=== PATIENT | female | born 1985 | race Caucasian/White ===

== ENCOUNTER → 2016-11-21 16:24 | Outpatient (CLI) | payer MEDICAID | END | disposition home or self-care (01) | LOC: D.MAMMO 10:45 | DX: N60.19 Diffuse cystic mastopathy of unspecified breast (principal) ==

== ENCOUNTER → 2017-06-21 16:32 | Outpatient (CLI) | payer MEDICAID | END | disposition home or self-care (01) | LOC: D.MAMMO 09:30 | DX: R92.8 Other abnormal and inconclusive findings on diagnostic imaging of breast (principal) ==

== ENCOUNTER 2019-07-07 11:19 | Inpatient (IN) | payer MEDICAID ==
[~2019-07-07] VITALS: Ht 171.4 cm; Wt 78.5 kg
[2019-07-07 12:33] LABS: BASOPHILS 0.1 % (0-2); EOSINOPHILS 0.1 % (0-7); HEMATOCRIT 43.1 % (36.0-48.0); HEMOGLOBIN 15.6 g/dL (12-16); IMMATURE GRANULOCYTES 0.3 % (0-5); LYMPHOCYTES 13.4 % (15-50); MCH 31.2 pg (26.0-34.0); MCHC 36.2 g/dL (31.0-37.0); MCV 86.2 fL (80.0-100.0); MONOCYTES 8.2 % (2-11); NEUTROPHILS 77.9 % (40-80); PLATELET COUNT 226 10x3/uL (130-400); RDW 13.3 % (11.5-14.5); WBC 10.9 10x3/uL (4.8-10.8)
[2019-07-07 12:58] LABS: ALBUMIN 4.1 g/dL (3.4-5.0); ANION GAP 14.7 mmol/L (8-16); BILIRUBIN - TOTAL 1.06 mg/dL (0.2-1.3); CALCIUM 8.7 mg/dL (8.5-10.1); POTASSIUM - SERUM 3.7 mmol/L (3.5-5.1); PROTEIN - SERUM 7.9 g/dL (6.4-8.2)
[2019-07-07 13:03] LABS: TROPONIN-I 0.022 ng/mL (0.000-0.060)
[2019-07-07 13:41] VITALS: BP 118/74
--- NOTE | 2019-07-07 14:29 | NUR ---
FLU SWAB TO LAB
[2019-07-07 15:02] LABS: APTT 21.9 SECONDS (22.8-39.4); PROTIME 12.7 SECONDS (11.6-15.0)
--- NOTE | 2019-07-07 15:12 | NUR ---
URINE TO LAB
[2019-07-07 15:31] LABS: APPEARANCE HAZY (CLEAR); BACTERIA MANY /hpf (NONE SEEN); BILIRUBIN NEGATIVE (NEGATIVE); COLOR YELLOW (YELLOW); EPITHELIAL CELLS 0-5 /hpf (0-5); GLUCOSE NEGATIVE (NEGATIVE); KETONE NEGATIVE (NEGATIVE); MUCUS >1+ /lpf (NONE SEEN); NITRITE POSITIVE (NEGATIVE); PROTEIN TRACE mg/dL (NEGATIVE); UROBILINOGEN NORMAL (NORMAL)
[2019-07-07 15:32] LABS: AMORPHOUS SEDIMENT <1+ /lpf (NONE SEEN); HCG URINE NEGATIVE (NEGATIVE)
[2019-07-07 16:43] VITALS: BP 150/87
--- NOTE | 2019-07-07 16:47 | NUR ---
VITALS TAKEN AT 1643 ARE FOR ANOTHER PT
--- NOTE | 2019-07-07 17:36 | MORECARE ---
CASE MANAGEMENT DISCHARGE SUMMARY PATIENT: SHERRY CRUZ UNIT: [id number] ADM DATE: 07/07/19 AGE: 34 : 81 SEX: F ROOM/BED: D.1205 AUTHOR: HORACIO CACERES PHYSICIAN: REFERRING PHYSICIAN: KAVYA EMERSON MD DATE OF SERVICE: 07/07/19 Discharge Plan Patient Name: SHERRY CRUZ Facility: [facility]:[place] : 1985 Planned Disposition: Home Anticipated Discharge Date: 07/09/19 Discharge Date: Expected LOS: 2 Initial Reviewer: [email or web address] Initial Review Date: 07/07/2019 Generated: 07/07/19 6:36 pm DCPIA - Discharge Planning Initial Assessment Updated by [email or web address]: Nesha Shaikh on 07/07/19 5:34 pm * Is the patient Alert and Oriented? Yes * How many steps to enter\exit or inside your home? None * PCP Dr. Balderrama * Pharmacy [facility] on [address] * Preadmission Environment Home with Family * ADLs Independent * Equipment None * List name and contact numbers for known caregivers / representatives who currently or will assist patient after discharge: Adela Rivas [facility] - [phone] * Verbal permission to speak to the caregivers and representatives has been obtained from the patient. Yes * Community resources currently utilized None * Additional services required to return to the preadmission environment? No * Can the patient safely return to the preadmission environment? Yes * Has this patient been hospitalized within the prior 30 days at any hospital? No Patient Name: SHERRY CRUZ Page 51437 at 1736 All edits/amendments must be made on the electronic document DICTATION DATE: 07/07/191735 PRINTED CIRCUIT BOARD DESIGNER: CHETNA 07/07/191735 RPT#: [id number] DC DATE: STATUS: ADM IN [facility] [address] [place] [address] END OF REPORT
[2019-07-07] MEDS ORDERED: ADVIL200 MG PO (18:25)
[2019-07-07 18:32] VITALS: BP 132/75; BMI 26.7
[2019-07-07 19:32] VITALS: BP 107/68
[2019-07-07 23:41] VITALS: BP 98/51
[2019-07-08 04:54] VITALS: BP 103/52
[2019-07-08 06:41] LABS: BASOPHILS 0.1 % (0-2); EOSINOPHILS 1.2 % (0-7); HEMATOCRIT 34.5 % (36.0-48.0); IMMATURE GRANULOCYTES 0.3 % (0-5); LYMPHOCYTES 31.1 % (15-50); MCH 30.4 pg (26.0-34.0); MCHC 34.5 g/dL (31.0-37.0); MEAN PLATELET VOLUME 10.1 fL (7.4-10.4); MONOCYTES 9.2 % (2-11); NEUTROPHILS 58.1 % (40-80); RDW 13.5 % (11.5-14.5)
[2019-07-08 06:43] LABS: HEMOGLOBIN 11.9 g/dL (12-16); PLATELET COUNT 161 10x3/uL (130-400); RBC 3.92 10x6/uL (4.00-5.40); WBC 6.8 10x3/uL (4.8-10.8)
[2019-07-08 07:11] LABS: ALKALINE PHOSPHATASE 49 U/L (46-116); BILIRUBIN - TOTAL 0.87 mg/dL (0.2-1.3); CALC OSMOLALITY 282 mosm/kg (275-300); CALCIUM 7.7 mg/dL (8.5-10.1); CARBON DIOXIDE 26.6 mmol/L (21.0-32.0); CHLORIDE - SERUM 109 mmol/L (98-107); CREATININE - SERUM 0.8 mg/dL (0.6-1.3); GLUCOSE 89 mg/dL (74-106); POTASSIUM - SERUM 3.7 mmol/L (3.5-5.1); SODIUM 142 mmol/L (136-145); UREA NITROGEN 15 mg/dL (7-18); eGFR NON AFRICAN AMERICAN 86 mL/min (90-120)
[2019-07-08 07:13] LABS: ALBUMIN 2.8 g/dL (3.4-5.0); ALT (SGPT) 690 U/L (10-68); PROTEIN - SERUM 5.7 g/dL (6.4-8.2)
--- NOTE | 2019-07-08 07:37 | NUR ---
ROUNDING DONE WITH PATIENT HAVING NO NEEDS VOICED AT THIS TIME. ON ROOM AIR. LEFT AC PIV SEEN WITH NS INFUSING AT 125 CC/HR. WILL CPOC.
[2019-07-08 07:48] VITALS: BP 105/62
--- NOTE | 2019-07-08 09:24 | NUR ---
RESTING AT THIS TIME WITH EYES CLOSED, HOB AT 45 DEGREES.
--- NOTE | 2019-07-08 09:55 | NUR ---
PATIENT TO COMPLAIN OF FLANK PAIN, MS 4 MG GIVEN ORDERED. PATIENT STATES THAT SHE FEELS SWOLLEN AND WOULD LIKE THE FLUIDS TURNED DOWN SOME. DECREASED TO 50 CC/HR AND PATIENT IS INSTRUCITED TO DRINK.
[2019-07-08 10:10] LABS: HEPATITIS C ANTIBODY <0.1 S/CO RAT (0.0-0.9)
--- NOTE | 2019-07-08 10:46 | NUR ---
PLACED ON HEART MONITOR ORDERED. CLEAN [place] HAT X 2 PLACED IN [facility] AND EXPLAINED USE TO PATIENT. SIGNS PLACED ON DOOR FOR UA, STOOL, AND STRICT I AND O.
[2019-07-08 10:51] LABS: % SATURATION 82 % (15-55); IRON 216 ug/dl (35-150); TOTAL IRON BIND CAPACITY 261 ug/dl (260-445)
[2019-07-08 10:54] LABS: UNSAT IRON BIND CAPACITY 45 ug/dl (150-375)
[2019-07-08 11:28] VITALS: BP 122/65
--- NOTE | 2019-07-08 11:56 | MORECARE ---
CASE MANAGEMENT DISCHARGE SUMMARY PATIENT: SHERRY CRUZ UNIT: [id number] ADM DATE: 07/07/19 AGE: 34 : 81 SEX: F ROOM/BED: D.1205 AUTHOR: NICKI,DOC PHYSICIAN: REFERRING PHYSICIAN: KAVYA EMERSON MD DATE OF SERVICE: 07/08/19 Discharge Plan Patient Name: SHERRY CRUZ Facility: [facility]:[place] : 1985 Planned Disposition: Home Anticipated Discharge Date: 07/09/19 Discharge Date: Expected LOS: 2 Initial Reviewer: [email or web address] Initial Review Date: 07/07/2019 Generated: 07/08/19 12:56 pm Comments DCP- Discharge Planning Updated by [email or web address]: Olivia Horan on 07/08/19 10:[address] DC PLAN: Return home independently. ANTICIPATED DC NEEDS: Denied known dc needs. CM met with patient to complete initial dc planning assessment. CM educated patient on the CM role and verbal consent given by patient to complete assessment. CM verified patient's address, phone number, and emergency contact phone numbers. Patient lives at home independently with her school age children. At discharge patient plans to return home and feels this is a safe discharge. CM discussed availability of home health, rehab services, and medical equipment. Patient denied known discharge needs at this time. Patient reports her sister, Adela will transport her home at time of discharge. CM will continue to follow and will assist as needed with dc plans/needs. Nesha Shaikh RN, [facility] DCPIA - Discharge Planning Initial Assessment Updated by [email or web address]: Nesha Shaikh on 07/07/19 5:34 pm * Is the patient Alert and Oriented? Yes * How many steps to enter\exit or inside your home? None * PCP Dr. Balderrama * Pharmacy [facility] on [address] * Preadmission Environment Home with Family * ADLs Independent * Equipment None * List name and contact numbers for known caregivers / representatives who currently or will assist patient after discharge: Adela - - [phone] * Verbal permission to speak to the caregivers and representatives has been obtained from the patient. Yes * Community resources currently utilized None * Additional services required to return to the preadmission environment? No * Can the patient safely return to the preadmission environment? Yes * Has this patient been hospitalized within the prior 30 days at any hospital? No Last DP export: 07/07/19 4:36 p Patient Name: SHERRY CRUZ Page 13386 at 1156 All edits/amendments must be made on the electronic document DICTATION DATE: 07/08/191155 THERMO PROCESSOR: CHETNA 07/08/19 1156 RPT#: [id number] DC DATE: STATUS: ADM IN [facility] [address] [place] [address] END OF REPORT
[2019-07-08 13:46] VITALS: Ht 171.4 cm; Wt 78.5 kg
--- NOTE | 2019-07-08 14:37 | NUR ---
URINE SENT TO LAB ORDERED.
[2019-07-08 15:50] VITALS: BP 117/70
--- NOTE | 2019-07-08 18:22 | NUR ---
PATIENT HAS NOT HAD A BM FOR THIS SHIFT, UNABLE TO COLLECT SPECIMEN.
[2019-07-08 20:21] VITALS: BP 116/68
[2019-07-09 00:27] VITALS: BP 117/63
[2019-07-09 04:17] VITALS: BP 118/76
[2019-07-09 06:23] LABS: BASOPHILS 0.4 % (0-2); EOSINOPHILS 1.9 % (0-7); HEMATOCRIT 31.6 % (36.0-48.0); IMMATURE GRANULOCYTES 0.2 % (0-5); LYMPHOCYTES 35.2 % (15-50); MCH 30.6 pg (26.0-34.0); MCHC 34.8 g/dL (31.0-37.0); MEAN PLATELET VOLUME 10.2 fL (7.4-10.4); MONOCYTES 6.9 % (2-11); NEUTROPHILS 55.4 % (40-80); PLATELET COUNT 152 10x3/uL (130-400); RBC 3.59 10x6/uL (4.00-5.40); RDW 13.3 % (11.5-14.5); WBC 5.7 10x3/uL (4.8-10.8)
--- NOTE | 2019-07-09 07:11 | NUR ---
ROUNDING DONE WITH PATIENT AROUSING EASILY. HOB AT 45 DEGREES. LEFT AC PIV WITH NS INFUSING AT 50 CC/HR. ON ROOM AIR. ON HEART MONITOR. STILL NEEDING STOOL SAMPLE. ON STRICT I AND O. ON EP, NO LAB VALUES BACK AT THIS TIME.
[2019-07-09 07:15] LABS: ALBUMIN 2.6 g/dL (3.4-5.0); ALKALINE PHOSPHATASE 45 U/L (46-116); BILIRUBIN - TOTAL 0.59 mg/dL (0.2-1.3); CALCIUM 8.2 mg/dL (8.5-10.1); CARBON DIOXIDE 26.9 mmol/L (21.0-32.0); CHLORIDE - SERUM 109 mmol/L (98-107); CREATININE - SERUM 0.6 mg/dL (0.6-1.3); GLUCOSE 85 mg/dL (74-106); MAGNESIUM - SERUM 1.7 mg/dL (1.8-2.4); POTASSIUM - SERUM 3.8 mmol/L (3.5-5.1); PROTEIN - SERUM 5.2 g/dL (6.4-8.2); SODIUM 143 mmol/L (136-145); THYROID STIMULATING HORMONE 4.54 uIU/mL (0.36-3.74); eGFR NON AFRICAN AMERICAN > 90 mL/min (90-120)
[2019-07-09 07:17] LABS: ALT (SGPT) 474 U/L (10-68); CALC OSMOLALITY 282 mosm/kg (275-300); UREA NITROGEN 11 mg/dL (7-18)
--- NOTE | 2019-07-09 07:20 | NUR ---
EP RESULTS ARE BACK WITH K+ 3.8, MAG 1.7. WILL COVER WITH SUPPLEMENTS.
[2019-07-09 08:35] VITALS: BP 124/74
--- NOTE | 2019-07-09 10:42 | NUR ---
RESTING WITH EYES CLOSED, RESP EVEN. APPEARS PAIN FREE.
[2019-07-09 11:26] VITALS: BP 128/68
--- NOTE | 2019-07-09 11:33 | NUR ---
NEW ORDERS FROM DR MURRELL TO SALINE LOCK IV.
[2019-07-09 15:16] VITALS: BP 120/74
--- NOTE | 2019-07-09 18:30 | NUR ---
UNABLE TO COLLECT STOOL SAMPLE FOR THIS SHIFT.
[2019-07-09 19:00] VITALS: BP 116/82
--- NOTE | 2019-07-09 19:00 | NUR ---
REPORT RECEIVED FROM OFF GOING NURSE. PT WAS AMBULATING IN ROOM AT TIME OF ROUNDING. NO SIGNS OF DISTRESS NOTED OR VOICED. INITIAL ASSESSMENT COMPLETED, SEE FLOWSHEET FOR DETAILS. WILL CONTINUE TO MONITOR.
[2019-07-10 04:00] VITALS: BP 122/101
[2019-07-10 06:46] LABS: BASOPHILS 0.2 % (0-2); EOSINOPHILS 2.3 % (0-7); HEMATOCRIT 31.9 % (36.0-48.0); HEMOGLOBIN 11.2 g/dL (12-16); IMMATURE GRANULOCYTES 0.2 % (0-5); LYMPHOCYTES 34.6 % (15-50); MCH 30.6 pg (26.0-34.0); MCHC 35.1 g/dL (31.0-37.0); MCV 87.2 fL (80.0-100.0); MEAN PLATELET VOLUME 10.3 fL (7.4-10.4); MONOCYTES 7.1 % (2-11); NEUTROPHILS 55.6 % (40-80); PLATELET COUNT 162 10x3/uL (130-400); RBC 3.66 10x6/uL (4.00-5.40)
[2019-07-10 06:50] LABS: ALBUMIN 2.7 g/dL (3.4-5.0); ALKALINE PHOSPHATASE 49 U/L (46-116); BILIRUBIN - TOTAL 0.48 mg/dL (0.2-1.3); CALC OSMOLALITY 279 mosm/kg (275-300); CALCIUM 8.4 mg/dL (8.5-10.1); CARBON DIOXIDE 28.9 mmol/L (21.0-32.0); CHLORIDE - SERUM 107 mmol/L (98-107); CREATININE - SERUM 0.6 mg/dL (0.6-1.3); GLUCOSE 94 mg/dL (74-106); MAGNESIUM - SERUM 1.6 mg/dL (1.8-2.4); POTASSIUM - SERUM 3.7 mmol/L (3.5-5.1); PROTEIN - SERUM 5.4 g/dL (6.4-8.2); SODIUM 141 mmol/L (136-145); UREA NITROGEN 10 mg/dL (7-18); eGFR NON AFRICAN AMERICAN > 90 mL/min (90-120)
[2019-07-10 06:58] LABS: ALT (SGPT) 328 U/L (10-68)
--- NOTE | 2019-07-10 07:10 | NUR ---
REPORT RECEIVED FROM ESCROW ASSISTANT AND PATIENT CARE ASSUMED. PATIENT LAYING IN BED WITH EYES CLOSED AND BREATHINHG EVENLY. PATIENT IS STABLE AND VSS. WILL CONTINUE WITH PLAN OF CARE. SR UP X 2 BED IN LOW POSITION AND CALL LIGHT IN REACH.
[2019-07-10 08:00] VITALS: BP 123/74
--- NOTE | 2019-07-10 08:40 | NUR ---
NUTRITION F/U PT REPORTS IMPROVING PO INTAKE. RECEIVING DULCOLAX FOR CONSTIPATION. WILL CONTINUE TO PROVIDE DIET AND MONITOR PT PROGRESS. RD FOLLOWING
--- NOTE | 2019-07-10 09:30 | NUR ---
CALLED TO PATIENT ROOM. PATIENT SISTER IN ROOM. ANSWERED QUESTIONS TO PATIENT AND PATIENT SISTER SATISFACTION. WILL CONTINUE TO MONITOR. SR UP X 2 BED IN LOW POSITION AND CALL LIGHT IN REACH.
--- NOTE | 2019-07-10 11:45 | NUR ---
DR MURRELL IN ROOM AND NEW ORDERS RECEIVED.
[2019-07-10 14:17] LABS: CKMB 3.6 U/L (0.0-3.6); CREATINE KINASE 2282 UL (21-215); TROPONIN-I < 0.017 ng/mL (0.000-0.060)
--- NOTE | 2019-07-10 16:38 | NUR ---
PATIENT SITTING UP IN BED WATCHING TV. PATIENT IS STABLE AND VSS. PATIENT DENIES ANY NEEDS OR PAIN. WILL CONTINUE TO MONITOR. SR UP X 2 BED IN LOW POSITION AND CALL LIGHT IN REACH.
--- NOTE | 2019-07-10 18:01 | NUR ---
IV INFILLTRATED. REMOVED IV WITH ENTIRE CATHETER INTACT. RESITED IV TO LT WRIST 22 G W/O DIFFICULTY AND PATIENT TOLERATED WELL. IV ROCEPHIN INFUSING. WILL CONTINUE TO MONITOR. SR UP X 2 BED IN LOW POSITION AND CALL LIGHT IN REACH.
[2019-07-10 19:00] VITALS: BP 117/70
--- NOTE | 2019-07-10 19:00 | NUR ---
REPORT RECEIVED FROM OFF GOING NURSE. PT IS SITTING UP IN BED WATCHING TV AT THIS TIME. INITIAL ASSESSMENT COMPLETED, SEE FLOWSHEET FOR DETAILS. PT DENIES NEEDS AT THIS TIME. WILL CONTINUE TO MONITOR.
[2019-07-10 19:37] LABS: CREATINE KINASE 2556 UL (21-215); TROPONIN-I < 0.017 ng/mL (0.000-0.060)
[2019-07-11 00:56] LABS: CKMB 3.8 U/L (0.0-3.6)
[2019-07-11 01:00] LABS: CREATINE KINASE 2129 UL (21-215); TROPONIN-I < 0.017 ng/mL (0.000-0.060)
[2019-07-11 04:00] VITALS: BP 120/78
[2019-07-11 06:26] LABS: ALBUMIN 2.9 g/dL (3.4-5.0); ALKALINE PHOSPHATASE 53 U/L (46-116); ALT (SGPT) 263 U/L (10-68); BILIRUBIN - TOTAL 0.53 mg/dL (0.2-1.3); CALC OSMOLALITY 279 mosm/kg (275-300); CALCIUM 8.5 mg/dL (8.5-10.1); CARBON DIOXIDE 30.8 mmol/L (21.0-32.0); CHLORIDE - SERUM 106 mmol/L (98-107); CREATININE - SERUM 0.7 mg/dL (0.6-1.3); GLUCOSE 85 mg/dL (74-106); MAGNESIUM - SERUM 1.8 mg/dL (1.8-2.4); POTASSIUM - SERUM 4.2 mmol/L (3.5-5.1); PROTEIN - SERUM 5.7 g/dL (6.4-8.2); SODIUM 142 mmol/L (136-145); UREA NITROGEN 8 mg/dL (7-18); eGFR NON AFRICAN AMERICAN > 90 mL/min (90-120)
[2019-07-11 06:43] LABS: BASOPHILS 0.3 % (0-2); EOSINOPHILS 2.4 % (0-7); HEMATOCRIT 33.8 % (36.0-48.0); HEMOGLOBIN 11.9 g/dL (12-16); IMMATURE GRANULOCYTES 0.4 % (0-5); LYMPHOCYTES 35.6 % (15-50); MCH 30.8 pg (26.0-34.0); MCHC 35.2 g/dL (31.0-37.0); MCV 87.6 fL (80.0-100.0); MEAN PLATELET VOLUME 10.2 fL (7.4-10.4); MONOCYTES 8.5 % (2-11); NEUTROPHILS 52.8 % (40-80); PLATELET COUNT 187 10x3/uL (130-400); RBC 3.86 10x6/uL (4.00-5.40); RDW 12.9 % (11.5-14.5)
--- NOTE | 2019-07-11 07:31 | NUR ---
REPORT RECEIVED FROM LONGWALL SHEARER OPERATOR AND PATIENT CARE ASSUMED. PATIENT LAYING IN BED ON BACK WITH EYES CLOSED AND BREATHING EVENLY. WILL CONTINUE WITH PLAN OF CARE. SR UP X 2 BED IN LOW POSITION AND CALL LIGHT IN REACH. SON ASLEEP IN BS CHAIR.
--- NOTE | 2019-07-11 12:30 | NUR ---
PATIENT IS STABLE AND VSS. PATIENT TO CT FOR CTA.
--- NOTE | 2019-07-11 13:00 | NUR ---
PATIENT RETURNED FROM CT. PATIENT IS STABLE AND VSS.
[2019-07-11 14:04] LABS: APPEARANCE CLEAR (CLEAR); BILIRUBIN NEGATIVE (NEGATIVE); COLOR YELLOW (YELLOW); GLUCOSE NEGATIVE (NEGATIVE); KETONE NEGATIVE (NEGATIVE); NITRITE NEGATIVE (NEGATIVE); PROTEIN NEGATIVE (NEGATIVE); SPECIFIC GRAVITY 1.005 (1.005-1.020); UROBILINOGEN NORMAL (NORMAL)
[2019-07-11] MEDS ORDERED: TRIAMTERENE-HC1 EAC6 PO (16:18)
[2019-07-11 20:08] VITALS: BP 144/86
[2019-07-12] VITALS: BP 114/68; BP 140/81
[2019-07-12 04:00] VITALS: BP 117/68
[2019-07-12 07:17] LABS: BASOPHILS 0.4 % (0-2); EOSINOPHILS 3.4 % (0-7); HEMATOCRIT 38.9 % (36.0-48.0); HEMOGLOBIN 13.7 g/dL (12-16); IMMATURE GRANULOCYTES 0.3 % (0-5); LYMPHOCYTES 24.7 % (15-50); MCH 30.9 pg (26.0-34.0); MCHC 35.2 g/dL (31.0-37.0); MCV 87.8 fL (80.0-100.0); MEAN PLATELET VOLUME 9.8 fL (7.4-10.4); MONOCYTES 7.8 % (2-11); NEUTROPHILS 63.4 % (40-80); PLATELET COUNT 194 10x3/uL (130-400); RBC 4.43 10x6/uL (4.00-5.40); WBC 6.8 10x3/uL (4.8-10.8)
--- NOTE | 2019-07-12 07:20 | NUR ---
AM ROUNDS- PT RESTING COMFORTABLY IN BED WITH EYES CLOSED, EASILY AROUSES TO VOICE. PT IS ALERT AND ORIENTED X3, PT IS SET TO GO HOME TODAY, PENDING PAPERWORK. WILL CTM.
[2019-07-12 07:31] LABS: ALBUMIN 3.2 g/dL (3.4-5.0); ALKALINE PHOSPHATASE 59 U/L (46-116); ALT (SGPT) 214 U/L (10-68); BILIRUBIN - TOTAL 0.48 mg/dL (0.2-1.3); CALC OSMOLALITY 279 mosm/kg (275-300); CALCIUM 9.1 mg/dL (8.5-10.1); CARBON DIOXIDE 28.8 mmol/L (21.0-32.0); CHLORIDE - SERUM 103 mmol/L (98-107); CREATININE - SERUM 0.7 mg/dL (0.6-1.3); GLUCOSE 127 mg/dL (74-106); MAGNESIUM - SERUM 1.9 mg/dL (1.8-2.4); POTASSIUM - SERUM 3.8 mmol/L (3.5-5.1); PROTEIN - SERUM 6.9 g/dL (6.4-8.2); SODIUM 140 mmol/L (136-145); UREA NITROGEN 9 mg/dL (7-18); eGFR NON AFRICAN AMERICAN > 90 mL/min (90-120)
--- NOTE | 2019-07-12 08:35 | NUR ---
ADMINISTERED MORNING MEDICATION, NO TROUBLE SWALLOWING, NO IV PAIN COMPLAINT. REQUESTED FRESH WATER, PROVIDED PROMPLTY. DENIES OTHER NEEDS AT THIS TIME. WILL CTM.
--- NOTE | 2019-07-12 11:00 | NUR ---
ADMINISTERED MEDICATION AT THIS TIME, NO TROUBLE SWALLOWING. PT IS RESTING COMFORTABLY. WAITING FOR RIDE HOME. ALL OTHER DISCHARGE IS COMPLETE. WILL CTM.
--- NOTE | 2019-07-12 13:28 | NUR ---
DC RIGHT AC IV WITH CATHETER TIP INTACT. PT HAS SIGNED DISHCARGE PAPERS. ACCOMPANIED TO THE FRONT BY FAMILY.
--- NOTE | 2019-07-14 09:10 | MORECARE ---
CASE MANAGEMENT DISCHARGE SUMMARY PATIENT: SHERRY CRUZ UNIT: [id number] ADM DATE: 07/07/19 AGE: 34 : 81 SEX: F ROOM/BED: D.1205 AUTHOR: NICKI,DOC PHYSICIAN: REFERRING PHYSICIAN: KAVYA EMERSON MD DATE OF SERVICE: 07/14/19 Discharge Plan Patient Name: SHERRY CRUZ Facility: [facility]:[place] : 1985 Planned Disposition: Home Anticipated Discharge Date: 07/09/19 Discharge Date: 07/12/2019 Expected LOS: 2 Initial Reviewer: [email or web address] Initial Review Date: 07/07/2019 Generated: 07/14/19 10:10 am DCP- Discharge Planning Updated by [email or web address]: Olivia Horan on 07/08/19 10:[address] DC PLAN: Return home independently. ANTICIPATED DC NEEDS: Denied known dc needs. CM met with patient to complete initial dc planning assessment. CM educated patient on the CM role and verbal consent given by patient to complete assessment. CM verified patient's address, phone number, and emergency contact phone numbers. Patient lives at home independently with her school age children. At discharge patient plans to return home and feels this is a safe discharge. CM discussed availability of home health, rehab services, and medical equipment. Patient denied known discharge needs at this time. Patient reports her sister, Adela will transport her home at time of discharge. CM will continue to follow and will assist as needed with dc plans/needs. Nesha Shaikh RN, [facility] DCPIA - Discharge Planning Initial Assessment Updated by [email or web address]: Nesha Shaikh on 07/07/19 5:34 pm * Is the patient Alert and Oriented? Yes * How many steps to enter\exit or inside your home? None * PCP Dr. Balderrama * Pharmacy [facility] on [address] * Preadmission Environment Home with Family * ADLs Independent * Equipment None * List name and contact numbers for known caregivers / representatives who currently or will assist patient after discharge: Adela - - [phone] * Verbal permission to speak to the caregivers and representatives has been obtained from the patient. Yes * Community resources currently utilized None * Additional services required to return to the preadmission environment? No * Can the patient safely return to the preadmission environment? Yes * Has this patient been hospitalized within the prior 30 days at any hospital? No Last DP export: 07/08/19 10:57 a Patient Name: SHERRY CRUZ Page 64605 at 0910 All edits/amendments must be made on the electronic document DICTATION DATE: 07/14/19909 WOOD CREW SUPERVISOR: CHETNA 07/14/19909 RPT#: [id number] DC DATE:07/12/19 STATUS: DIS IN [facility] [address] [place] [address] END OF REPORT
--- NOTE | 2019-07-15 13:38 | EC ---
PATIENT:SHERRY CRUZ DATE OF SERVICE: 07/07/19 SEX: F MEDICAL RECORD: [id number] DATE OF : [birth year] LOCATION:D. D.120 AGE OF PATIENT: 34 ADMISSION DATE: 07/07/19 REFERRING PHYSICIAN: INTERPRETING PHYSICIAN: EMILE RAINEY MD ECHOCARDIOGRAM REPORT ECHO CHARGES 4 ECHO COMPLETE Date: 07/08/19 CLINICAL DIAGNOSIS: EDEMA ECHOCARDIOGRAPHIC MEASUREMENTS (adult normal given) AC root (d.<3.7cm) 1.3 cm LV Septum d (<1.2 cm> 1.6 cm Valve Excursion 1.5 cm LV Septum (systole) 3.0 cm Left Atria (s.<4.0cm> 1.5 cm LVPW d(<1.2cm) 3.0 cm RV (d.<2.3cm) 1.7 cm LVPW (sytole) 3.2 cm LV diastole(<5.6CM) 3.2 cm MV E-F(>70mm/sec) cm LV systole 2.3 cm LVOT Diameter 1.7 cm MV exc.(>10mm) 1.6 cm Est.ejection fraction (50-75%) % DOPPLER: LVIT cm/sec A 65.0 cm/sec E 79.0 cm/sec LA cm/sec RVSP 18 mmHg LVOT 98 cm/sec AOP1/2T m/s Asc. Ao 121 cm/sec RVOT 72 cm/sec RA cm/sec PA 121 cm/sec AV Gradient Peak 5.90 mmHg AV Mean 2.76 mmHg AV Area 1.8 cm MV Gradient Peak mmHg MV Mean mmHg MV Area cm COMMENTS: Manager Market Research: Mary BAEZ Bar Catcher: 2 Dr. Sandoval TAPE# PACS Pericardial Effusion N DATE OF SERVICE: 07/08/2019 Echocardiogram FINDINGS: 1. Left ventricular chamber size is within normal limits. Left ventricular systolic function is normal. Overall ejection fraction estimated at 65%. 2. Left atrium, right atrium, and right ventricular chamber sizes are within normal limits. 3. Valvular structures have normal structure and motion. ECHOCARDIOGRAM REPORT [id number] SHERRY CRUZ 4. Doppler interrogation reveals no significant valvular insufficiency or stenosis. Pulmonary systolic pressure is normal estimated at 18 mmHg. 5. No evidence of pericardial effusion or left ventricular thrombus. TRANSINT:[id number] Voice Confirmation ID: [id number] DOCUMENT ID: [id number] EMILE RAINEY MD at 1338 CC: [id number] DICTATION DATE: 07/08/191740 HAND HIDE STRETCHER: 07/08/192125 DIS IN 07/12/19 [facility] [address] [id number]
== END 2019-07-12 13:29 | disposition home or self-care (01) | DRG 442 ==
LOC: D.ER 11:19 → D.M3 17:04
PROVIDERS: Family Medicine; Internal Medicine Gastroenterology; ADMIT Emergency Medicine; ATTEND Emergency Medicine
DX: B17.10 Acute hepatitis C without hepatic coma (principal); N39.0 Urinary tract infection, site not specified; R74.0 Nonspecific elevation of levels of transaminase and lactic acid dehydrogenase [LDH]; D64.9 Anemia, unspecified; Z87.891 Personal history of nicotine dependence

== ENCOUNTER 2020-04-28 13:28 | Emergency (ER) | payer MEDICAID ==
[~2020-04-28] VITALS: Ht 171.4 cm; Wt 90.9 kg
[~2020-04-28 13:28] MED LIST: ADVIL200 MG PO; TRIAMTERENE-HC1 EAC6 PO
[2020-04-28 13:44] VITALS: Ht 171.4 cm; Wt 90.9 kg
[2020-04-28 14:46] LABS: BASOPHILS 0.3 % (0-2); EOSINOPHILS 1.7 % (0-7); HEMATOCRIT 38.1 % (36.0-48.0); HEMOGLOBIN 12.9 g/dL (12-16); IMMATURE GRANULOCYTES 0.3 % (0-5); LYMPHOCYTES 32.1 % (15-50); MCH 30.7 pg (26.0-34.0); MCHC 33.9 g/dL (31.0-37.0); MCV 90.7 fL (80.0-100.0); MEAN PLATELET VOLUME 9.3 fL (7.4-10.4); MONOCYTES 7.4 % (2-11); NEUTROPHILS 58.2 % (40-80); RDW 13.8 % (11.5-14.5); WBC 7.1 10x3/uL (4.8-10.8)
[2020-04-28 14:53] LABS: PLATELET COUNT 259 10x3/uL (130-400)
[2020-04-28 14:57] LABS: APTT 27.2 SECONDS (22.8-39.4); INR 0.97 (0.85-1.17); PROTIME 12.9 SECONDS (11.6-15.0)
[2020-04-28 15:02] LABS: CALC OSMOLALITY 276 mosm/kg (275-300); CALCIUM 8.8 mg/dL (8.5-10.1); CARBON DIOXIDE 24.8 mmol/L (21.0-32.0); CHLORIDE - SERUM 107 mmol/L (98-107); CREATININE - SERUM 0.8 mg/dL (0.6-1.3); GLUCOSE 90 mg/dL (74-106); POTASSIUM - SERUM 3.8 mmol/L (3.5-5.1); SODIUM 139 mmol/L (136-145); UREA NITROGEN 10 mg/dL (7-18); eGFR NON AFRICAN AMERICAN 85 mL/min (90-120)
[2020-04-28 15:17] LABS: ALBUMIN 3.4 g/dL (3.4-5.0); ALKALINE PHOSPHATASE 79 U/L (30-120); ALT (SGPT) 38 U/L (10-68); BILIRUBIN - TOTAL 0.45 mg/dL (0.2-1.3); CKMB 0.3 U/L (0.0-3.6); CREATINE KINASE 65 UL (21-215); MAGNESIUM - SERUM 2.2 mg/dL (1.8-2.4); TROPONIN-I < 0.017 ng/mL (0.000-0.060)
[2020-04-28 15:39] LABS: GLUCOSE NEGATIVE (NEGATIVE); KETONE NEGATIVE (NEGATIVE); NITRITE NEGATIVE (NEGATIVE)
[2020-04-28 15:40] LABS: BILIRUBIN NEGATIVE (NEGATIVE); HCG URINE NEGATIVE (NEGATIVE); UROBILINOGEN NORMAL (NORMAL)
[2020-04-28] MEDS ORDERED: FUROSEMIDE20 MG PO (16:40)
[2020-04-28 16:45] VITALS: BP 110/69
== END 2020-04-28 17:09 | disposition home or self-care (01) ==
LOC: D.ER 13:28
PROVIDERS: Family Medicine
DX: R09.89 Other specified symptoms and signs involving the circulatory and respiratory systems (principal); R06.02 Shortness of breath; R07.89 Other chest pain

== ENCOUNTER → 2020-08-06 12:06 | Outpatient (CLI) | payer MEDICAID ==
[2020-04-28 13:44] VITALS: BMI 30.9
[~2020-08-06 12:06] MED LIST changes: +FUROSEMIDE20 MG PO
== END | disposition home or self-care (01) ==
LOC: D.NM 06-25 09:30
PROVIDERS: ATTEND Clinical Nurse Specialist Adult Health
DX: R10.11 Right upper quadrant pain (principal)